=== PATIENT | male | born 1990 | race Caucasian/White ===

== ENCOUNTER → 2024-07-08 09:27 | Outpatient (BNVA) | payer MEDICARE, SELFPAY | PROVIDERS: Visit Provider Nurse Practitioner | DX: R03.0 Elevated blood-pressure reading, without diagnosis of hypertension (principal); I10 Essential (primary) hypertension | CPT/HCPCS: 80053; 80061; 84443; 85025 ==

== ENCOUNTER → 2024-07-09 15:37 | Outpatient (BNVA) | payer MEDICARE, SELFPAY | PROVIDERS: PCP Nurse Practitioner; Referring Provider Nurse Practitioner; Visit Provider Nurse Practitioner | DX: M53.3 Sacrococcygeal disorders, not elsewhere classified (principal) | CPT/HCPCS: 72220 ==

== ENCOUNTER → 2025-01-03 08:59 | Outpatient (BNVA) | payer MEDICARE, MEDICAID, SELFPAY | PROVIDERS: PCP Nurse Practitioner; Visit Provider Nurse Practitioner | DX: R74.8 Abnormal levels of other serum enzymes (principal) | CPT/HCPCS: 80053 ==

== ENCOUNTER 2025-01-05 08:16 | Emergency (ER) | payer OTHER, MEDICAID, SELFPAY ==
[2025-01-05 08:22] VITALS: BP 129/91; PULSE 92; RESP 18; TEMP 37.1; O2SAT 100; BMI 22.9
--- NOTE | 2025-01-05 08:28 | ED_ITS ---
HPI - Nausea/Vomiting/Diarrhea 2 General: Chief complaint: Nausea/Vomiting/Diarrhea Stated complaint: blood in vomit Time Seen by Provider: 01/05/25 08:22 Source: patient Mode of arrival: ambulatory Limitations: no limitations History of Present Illness: 34-year-old male states that he has a hi story of alcoholism drinks nightly states he had had a fireball shot last night and then vomited once. He states when he vomited he had a slight amount of blood in his vomitus. He denies any large amounts of blood states he had no vomiting since then denies any blood in his stool no history of variceal bleeds in the past. Related Data Previous Rx's ?Medication ?Instructions ?Recorded lisinopril 5 mg tablet 5 mg PO DAILY #30 tabs 01/03 pantoprazole 40 mg tablet,delayed 40 mg PO DAILY #60 t abs 01/05/25 release (Protonix) Allergies Allergy/AdvReac Type Severity Reaction Status Date / Time No Known Allergies Allergy Unverified 01/03/25 07:32 Review of Systems 2 GI: Reports: vomiting PFS ED 2 PFSH: Family History Mother Cancer uterine Diabetes Thyroid disease hosimoto Father Diabetes Denies family history of Heart disease Chronic kidney disease (CKD) Stroke Social History Smoking and tobacco/nicotine status: current every day tobacco/nicotine user Physical Exam 2 Const: COMMON NORMALS: no acute distress, patient oriented x3 and healthy appearing HENMT: COMMON NORMALS: normocephalic and atraumatic HEAD & SCALP: n ormocephalic and atraumatic Eye: COMMON NORMALS: conjunctivae normal CONJUNCTIVA: Yes conjunctivae normal Neck/C-Spine: COMMON NORMALS: full ROM and supple Chest: COMMONS NORMALS: normal inspection of the chest Resp: COMMON NORMALS: normal respiratory effort, No retractions, No use of accessory muscles and clear to auscultation bilaterally AUSCULTATION: clear to auscultation bilaterally Cardio: COMMON NORMALS: regular rate, regular rhythm and No murmurs present (Cardio) RATE: regular rate RHYTHM: regular rhythm GI: COMMON NORMALS: Normal to inspection, nondistended, normoactive bowel sounds present, Soft to palpation, non-tender and no masses PALPATION: Yes Soft to palpation Extremity: COMMON NORMALS: normal to inspection and full ROM Neuro: COMMON NORMALS: patient oriented x3, moves all extremities and no focal motor deficits Psych: COMMON NORMALS: mental status grossly normal, Normal thought process present and cooperative THOUGHT PROCESS: Normal thought process present Skin: COMMON NORMALS: no rashes or lesions noted and no wounds GENERAL SKIN EXAM: no rashes or lesions noted Course 2 Vital Signs: Vital signs: Vital Signs Temperature 98.8 F 01/05/25 08:22 Pulse Rate 95 01/05/25 09:19 Respiratory Rate 18 01/05/25 08:22 Blood Pressure 129/91 01/05/25 09:19 Pulse Oximetry 95 01/05/25 09:19 Oxygen Delivery Me thod Room Air 01/05/25 08:22 MDM - Nausea/Vomiting/Diarrhea Medical Decision Making Patient presents with hematemesis. Differential includes serious etiologies as upper GI bleed including esophageal varices. I believe this is unlikely as hemoglobin here is normal he has no signs of bleeding at this time he had only 1 episode of vomiting blood. 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 He does have a history of alcohol abuse did go over his labs with him to inform his liver labs are slightly elevated which he states he knows any in his liver worked up outpatient already. Will start him on Protonix he is to follow-up with his PCP he understands and agrees to the plan he is to return if worsening. Medical Records I reviewed the patient's medical records. Lab Data I reviewed the patient's lab results. 01/05/25 08:30 01/05/25 08:30 Laboratory Results WBC 6.68 10^3/uL (3.29-11.43) 01/05/25 08:30 RBC 5.70 10^6/uL (3.85-5.65) H 01/05/25 08:30 Hgb 19.30 g/dL (11.27-16.99) H 01/05/25 08:30 Hct 54.4 % (37-53) H 01/05/25 08:30 MCV 95.4 fl (82-101) 01/05/25 08:30 MCH 33.9 pg (27-33) H 01/05/25 08:30 MCHC 35.5 g/dL (30-55) 01/05/25 08:30 RDW 13.3 % (12.1-15.1) 01/05/25 08:30 Plt Count 247 10^3/cmm (157-399) 01/05/25 08:30 MPV 9.9 fL (7.4-10.4) 01/05/25 08:30 Neut % (Auto) 63.7 % 01/05/25 08:30 Lymph % (Auto) 25.0 % 01/05/25 08:30 [place] % (Auto) 6.1 % 01/05/25 08:30 Eos % (Auto) 3.7 % 01/05/25 08: Baso % (Auto) 1.2 % 01/05/25: Neut # (Auto) 4.25 10^3/uL (1.8-7.7) 01/05/25 08:30 Lymph # (Auto) 1.7 10^3/uL (0.8-4.8) 01/05/25 08:30 [place] # (Auto) 0.4 10^3/uL (0.2-0.9) 01/05/25 08:30 Eos # (Auto) 0.3 10^3/uL (0.0-0.8) 01/05/25 08:30 Baso # (Auto) 0.1 10^3/uL (0.0-0.1) 01/05/25 08:30 Nucleated RBC % (auto) 0 % 01/05/25 08: Nucleated RBCs # 0.0 /100WBC 01/05/25 08:30 PT 12.90 SECONDS (12.1-14.9) 01/05/25 08:30 INR 0.91 (0.8-1.2) 01/05/25 08:30 Sodium 133 mmol/L (136-145) L 01/05/25 08:30 Potassium 4.0 mmol/L (3.5-5.1) 01/05/25 08:30 Chloride 92 mmol/L (98-107) L 01/05/25 08:30 Carbon Dioxide 25 mmol/L (22-29) 01/05/25 08:30 Anion Gap 20.0 (5-19) H 01/05/25 08:30 BUN 4 mg/dL (6-20) L 01/05/25 08:30 Creatinine 1.0 mg/dL (0.7-1.2) 01/05/25 08:30 GFR Calculation 86.1 mL/min (90-130) L 01/05/25 08:30 Glucose 101 mg/dL (65-115) 01/05/25 08:30 Calculated Osmolality 273 mOsm/kg (285-295) L 01/05/25 08:30 Calcium 9.8 mg/dL (8.5-10.5) 01/05/25 08:30 Total Bilirubin 1.5 mg/dL (0.15-1.2) H 01/05/25 08:30 AST 400 U/L (0-40) H 01/05/25 08:30 ALT 154 U/L (0-41) H 01/05/25 08:30 Alkaline Phosphatase 159 U/L (40-130) H 01/05/25 08:30 Total Protein 8.6 g/dL (6.6-8.7) 01/05/25 08:30 Albumin 4.5 g/dL (3.5-5.2) 01/05/25 08:30 Globulin 4.1 g/dL (1.3-4.6) 01/05/25 08:30 Lipase 23 U/L (13-60) 01/05/25 08:30 Ethyl Alcohol 94 mg/dL (0-10) H 01/05/25 08:30 No radiology studies performed this visit Discharge Plan Discharge Patient Disposition: Home Clinical Impression: Alcohol abuse, Hematemesis Condition: Stable Prescriptions: New pantoprazole [Protonix] 40 mg tablet,delayed release (DR/EC) 40 mg PO DAILY Qty: 60 0RF No Action lisinopril 5 mg tablet 5 mg PO DAILY Qty: 30 1RF Discharge Orders: Discharge ED (Routine); Ordered 01/05/25 Ordered By: Daniele Schaffer Referrals: Adeel Simon MD [Physician, General Surgery] - 4-7 days Kate Villar FNP [Primary Care Provider, Nurse Practitioner] - 4-7 days Discharge Diet: Advance as tolerated Discharge Activity: Resume usual activity Patient Instructions: Hematemesis (ED) Print Language: [place] Coding Level of Care Code ED Palliative Care Nurse Practitioner for [facility]
[2025-01-05 08:37] LABS: Hematocrit 54.4 % (37-53); Hemoglobin 19.30 g/dL (11.27-16.99); Mean Corpuscular HGB Conc 35.5 g/dL (30-55); Mean Corpuscular Hemoglobin 33.9 pg (27-33); Mean Corpuscular Volume 95.4 fl (82-101); Nucleated Red Blood Cells % 0 %; Platelet Count 247 10^3/cmm (157-399); Red Blood Count 5.70 10^6/uL (3.85-5.65); White Blood Count 6.68 10^3/uL (3.29-11.43)
[2025-01-05 08:52] LABS: Alanine Aminotransferase 154 U/L (0-41); Albumin Level 4.5 g/dL (3.5-5.2); Alcohol Level 94 mg/dL (0-10); Alkaline Phosphatase 159 U/L (40-130); Anion Gap 20.0 (5-19); Aspartate Amino Transferase 400 U/L (0-40); Blood Urea Nitrogen 4 mg/dL (6-20); Calcium 9.8 mg/dL (8.5-10.5); Carbon Dioxide 25 mmol/L (22-29); Chloride 92 mmol/L (98-107); Creatinine Clr Calc Pharmacy 101.7047; Globulin 4.1 g/dL (1.3-4.6); Glucose 101 mg/dL (65-115); Lipase 23 U/L (13-60); Osmolality Calculated 273 mOsm/kg (285-295); Potassium 4.0 mmol/L (3.5-5.1); Sodium 133 mmol/L (136-145); Total Protein 8.6 g/dL (6.6-8.7)
[2025-01-05 09:19] VITALS: BP 129/91; PULSE 95; O2SAT 95
[2025-01-05 09:24] LABS: INR 0.91 (0.8-1.2); Prothrombin Time 12.90 SECONDS (12.1-14.9)
--- NOTE | 2025-01-06 08:43 | DCPLANNER ---
messaged gen surg for er f/u
== END 2025-01-05 09:22 | disposition home or self-care (01) ==
PROVIDERS: Emergency Provider Emergency Medicine; PCP Nurse Practitioner
DX: F10.129 Alcohol abuse with intoxication, unspecified (principal); Y90.4 Blood alcohol level of 80-99 mg/100 ml; K92.0 Hematemesis; Z72.0 Tobacco use
CPT/HCPCS: 36415; 80053; 80307; 83690; 85025; 85610; 99283

== ENCOUNTER 2025-02-03 08:44 | Outpatient (CLI) | payer OTHER, MEDICAID, SELFPAY | END 2025-02-03 08:45 | disposition home or self-care (01) | LOC: RAD 02-09 10:23 | PROVIDERS: PCP Nurse Practitioner; Visit Provider Nurse Practitioner | DX: K70.9 Alcoholic liver disease, unspecified (principal) | CPT/HCPCS: 99203 ==

== ENCOUNTER 2025-02-21 14:07 | Outpatient (CLI) | payer MEDICARE, MEDICAID, SELFPAY ==
[2025-02-21] MEDS: iohexol 350 mg/mL 500 mL Btl (per mL) IV (14:53)
--- NOTE | 2025-02-21 15:00 | CTR_ITS ---
PROCEDURE INFORMATION: Exam: CT Abdomen And Pelvis With Contrast Exam date and time: 02/21/2025 2:50 PM Age: 34 years old Clinical indication: Condition or disease; Liver condition; Other: Alcohol induced liver disorder TECHNIQUE: Imaging protocol: Computed tomography of the abdomen and pelvis with contrast. Radiation optimization: All CT scans at this facility use at least one of these dose optimization techniques: automated exposure control; mA and/or kV adjustment per patient size (includes targeted exams where dose is matched to clinical indication); or iterative reconstruction. Contrast material: [id number]; Contrast volume: 100 ml; Contrast route: INTRAVENOUS (IV); COMPARISON: CR XR coccyx 2V [id number] 07/09/2024 3:37 PM RADIATION DOSE METRICS: Total DLP (mGy-cm): 295.53 FINDINGS: Liver: Hepatic steatosis. No CT evidence of cirrhosis. Gallbladder and biliary ducts: Normal. No calcified stones. No ductal dilation. Pancreas: Normal. No ductal dilation. Spleen: Normal. No splenomegaly. Adrenal glands: Normal. No mass. Kidneys and ureters: Normal. No hydronephrosis. Stomach and bowel: Unremarkable. No obstruction. No mucosal thickening. Appendix: No evidence of appendicitis. Intraperitoneal space: Unremarkable. No free air. No significant fluid collection. Vasculature: Unremarkable. No abdominal aortic aneurysm. Lymph nodes: Unremarkable. No enlarged lymph nodes. Urinary bladder: Unremarkable as visualized. Reproductive: Unremarkable as visualized. Bones/joints: Unremarkable. No acute fracture. Soft tissues: Unremarkable. CT/CT abdomen pelvis w con* [id number] IMPRESSION: Hepatic steatosis. No CT evidence of cirrhosis.
== END 2025-02-21 14:08 | disposition home or self-care (01) ==
LOC: RAD 14:09
PROVIDERS: PCP Nurse Practitioner; Visit Provider Student in an Organized Health Care Education/Training Program
DX: K70.9 Alcoholic liver disease, unspecified (principal); K76.0 Fatty (change of) liver, not elsewhere classified
CPT/HCPCS: 74177